=== PATIENT | male | born 1970 | race Caucasian/White ===

== ENCOUNTER 2020-06-27 14:46 | Inpatient (IN) ==
[2020-06-27] MEDS ORDERED: OXYCODONE HCL IR 5 MG TAB (IMMEDIATE RELEASE) PO PRN (15:03)
[2020-06-27] MEDS ORDERED: PIPERACILL/TAZOBAC CONSULT ACTIVE PRN (15:08)
[2020-06-27] MEDS ORDERED: PIPERACILLIN/TAZOBACTAM 3.375 GM in DEXTROSE 5% 100 ML IV SCH (15:15)
[2020-06-27] MEDS ORDERED: PATIENT'S ALLERGY INFO NEEDS ENTERED SCH (15:30)
--- NOTE | 2020-06-27 15:30 | History and Physical Report ---
DATE OF ADMISSION: 06/27/2020 CHIEF COMPLAINT: Left wrist infection. HISTORY OF PRESENT ILLNESS: The patient is a 50-year-old gentleman who suffered a puncture wound to the ulnar side of his left wrist and hand area on Saturday. The patient states he struck his wrist on a board, which had 2 nails sticking out suffering 2 puncture wounds. He presented to our office today for evaluation. Evaluation shows extreme pain and swelling about the left hip, wrist and hand concerning for deep infection. He is to be admitted to the hospital to begin IV antibiotics, an MRI will be ordered, and the patient likely to require surgical intervention. PAST MEDICAL HISTORY: Depression. PAST SURGICAL HISTORY: Left knee, left hand. MEDICATIONS: Adderall 1 tablet 2 times daily, Effexor XR 37.5 mg daily, Erika-D 2 times daily. ALLERGIES: PENICILLIN AND SULFA. SOCIAL HISTORY: He is . He is an occupational therapist. REVIEW OF SYSTEMS: Noncontributory. PHYSICAL EXAMINATION: GENERAL: Well-nourished, well-developed male in obvious distress secondary to left wrist pain and swelling. EXTREMITIES: There are 2 small wounds on the ulnar aspect of the wrist and hand region consistent with his history. There is moderate to severe swelling about the hand and wrist, and it is very tender to palpation and tender with motion. He has got mildly positive Kanavel to sign. X-RAYS: X-rays were reviewed and were within normal limits. ASSESSMENT: A 50-year-old gentleman with a left wrist deep infection versus flexor tenosynovitis. PLAN: Above was discussed with the patient. We are going to admit him to [facility]. We are going to start him on IV antibiotics. We are going to consult infectious disease. We will order an MRI and make him n.p.o. after midnight for possible surgical intervention.
[2020-06-27 19:20] LABS: Basophils # (auto) 0.04 K/uL (0-0.2); Basophils % (auto) 0.4 %; Eosinophils # (auto) 0.03 K/uL (0-0.5); Eosinophils % (auto) 0.3 %; Hematocrit (blood only) 37.5 % (42-52); Hemoglobin 12.6 g/dL (14.0-18.0); Immature Granulocytes # (auto) 0.02 K/uL (0.00-0.02); Immature Granulocytes % (auto) 0.2 %; Lymphocytes # (auto) 1.73 K/uL (1.2-3.4); Lymphocytes % (auto) 17.4 %; Mean Corpuscular Hemoglobin 31.9 pg (25-34); Mean Corpuscular Hgb Conc 33.6 g/dL (32-36); Mean Corpuscular Volume 94.9 fL (80-100); Mean Platelet Volume 9.9 fL (7.4-10.4); Monocytes # (auto) 1.36 K/uL (0.11-0.59); Monocytes % (auto) 13.7 %; Neutrophils # (auto) 6.74 K/uL (1.4-6.5); Platelet Count 242 K/uL (130-400); RDW Coefficient of Variation 13.5 % (11.5-14.5); RDW Standard Deviation 47.3 fL (36.4-46.3); Red Blood Count 3.95 M/uL (4.7-6.1); White Blood Count 9.92 K/uL (4.8-10.8)
[2020-06-27] MEDS ORDERED: OXYCODONE HCL IR 5 MG TAB (IMMEDIATE RELEASE) ONE (19:27)
[2020-06-27] MEDS: SODIUM CHLORIDE 0.9% 1000ML 1,000 ML IV SCH (19:45)
[2020-06-27] MEDS ORDERED: cefTRIAXone SODIUM 1,000 MG in DEXTROSE 5% 50 ML IV SCH (21:00)
[2020-06-27] MEDS: DOCUSATE SODIUM 100 MG CAP PO SCH (21:10)
[2020-06-27] MEDS: ACETAMINOPHEN 500 MG TAB PO SCH (21:11)
[2020-06-28] MEDS: PROPRANOLOL HCL 10 MG TAB PO SCH ×2 (01:22→20:54)
[2020-06-28] MEDS: lamoTRIgine 100 MG TAB PO SCH ×2 (01:22→20:54)
[2020-06-28] MEDS: clonazePAM 0.5 MG TAB PO SCH ×2 (01:24→20:52)
[2020-06-28] MEDS: METOCLOPRAMIDE HCL INJ 5 MG/ML 2 ML VIAL IV PRN (02:15)
[2020-06-28] MEDS: OXYCODONE HCL IR 5 MG TAB (IMMEDIATE RELEASE) PO PRN ×3 (03:53→20:53)
[2020-06-28] MEDS ORDERED: cefTRIAXone SODIUM 1,000 MG in DEXTROSE 5% 50 ML IV SCH (06:00)
--- NOTE | 2020-06-28 06:32 | Magnetic Resonance Report ---
MR wrist LT wo con HISTORY: deep wrist infection vs flexor tenosynovitis pain. Infection. COMPARISON: None. TECHNIQUE: MR scanning of the wrist was performed using multiple pulse sequences, without intravenous contrast material. FINDINGS: Bones: Bone are normal in shape and marrow signal and the carpal bones are anatomically aligned. Flexor Tendons: The flexor tendons and median nerve are normal in signal. Flexor Retinaculum: They have a normal relationship with the flexor retinaculum. TFCC: Fluid within the distal radial ulnar articulation consistent with a tear of the triangular fibr ocartilage. Ligaments: Suboptimally seen. Small joint effusion between the second and third carpal bone row sugge sting probable intraosseous ligament disruption. Location is difficult to ascertain due to patient mo tion. DRUJ: The distal radioulnar joint (DRUJ) is congruent and ligaments are intact. Radiocarpal Joint: Radiocarpal joint has a normal relationship. Extensor and Abductor Tendons: Extensor and abductor tendons on the dorsal and radial surfaces are no rmal in signal and position. Soft Tissue: There is no soft tissue mass. IMPRESSION: 1. Soft tissue edema as well as joint effusion. 2. No acute bony abnormality. 3. Tear triangle fibrocartilage. 4. Secondary evidence for probable tear of the intraosseous ligaments. Location is difficult to ascer tain due to patient motion. ACT 112: Negative or not required by law. The above report was generated using voice recognition software. It may contain grammatical, syntax or spelling errors. Electronically signed by: Ilya Zazueta M.D. 06/28/2020 6:31 AM
[2020-06-28] MEDS ORDERED: HYDROmorphone INJ 0.5 MG/0.5 ML SYR IV PRN ×2 (06:50→07:26)
[2020-06-28] MEDS ORDERED: HYDROmorphone INJ 0.5 MG/0.5 ML SYR ONE (06:52)
[2020-06-28] MEDS ORDERED: HYDROmorphone INJ 0.5 MG/0.5 ML SYR IV STA (07:35)
[2020-06-28] MEDS ORDERED: KETOROLAC 30 MG/ML VIAL IV ONE (07:35)
[2020-06-28] MEDS: SODIUM CHLORIDE 0.9% 1000ML 1,000 ML IV SCH ×2 (07:43→19:20)
[2020-06-28] MEDS: ACETAMINOPHEN 500 MG TAB PO SCH ×3 (08:21→19:22)
[2020-06-28] MEDS: DOCUSATE SODIUM 100 MG CAP PO SCH ×2 (08:22→20:54)
[2020-06-28] MEDS: PANTOprazole 40 MG TAB PO SCH (08:22)
[2020-06-28] MEDS: VENLAFAXINE HCL XR 150 MG CAPXR PO SCH (08:23)
[2020-06-28] MEDS ORDERED: VENLAFAXINE HCL XR 75 MG CAPXR PO SCH (09:00)
[2020-06-28 10:07] LABS: Creatinine Clr Calc Pharmacy 99.7 ml/min; Est GFR (African American) 118.4; Est GFR (Non-African American) 102.2
--- NOTE | 2020-06-28 11:38 | Electrocardiogram Report ---
Test Reason : Blood Pressure : / mmHG Vent. Rate : 068 BPM Atrial Rate : 068 BPM P-R Int : 128 ms QRS Dur : 096 ms QT Int : 356 ms P-R-T Axes : 084 072 054 degrees QTc Int : 378 ms Normal sinus rhythm Normal ECG No previous ECGs available Confirmed by Bhavik Brewer ([id number]) on 06/28/2020 11:38:17 AM Referred By: Florentino Hernandez Confirmed By:Km Brewer
[2020-06-28] MEDS ORDERED: fentaNYL citrate 100 MCG/2 ML VIAL ONE ×2 (15:29→16:02)
[2020-06-28] MEDS ORDERED: LIDOCAINE HCL 2% 2 ML VIAL/AMP(20MG/ML) INFIL ONE (15:29)
[2020-06-28] MEDS ORDERED: ONDANSETRON INJ 2 MG/ML 2 ML VIAL ONE (15:29)
[2020-06-28] MEDS ORDERED: PROPOFOL IV EMULSION 10 MG/ML 20 ML VIAL IV ONE (15:29)
[2020-06-28] MEDS ORDERED: BUPIVACAINE 0.5 % 5 MG/1 ML MPF 30ML VIAL ONE (15:30)
--- NOTE | 2020-06-28 15:40 | History & Physical Bridge Note ---
Date of Service June 28, 2020 History & Physical Bridge Note I have examined the patient, reviewed the History & Physical and in the interval since the performance of the History & Physical I have noted the following changes of clinical significance: no changes noted We will plan for a left wrist washout, with irrigation and debridement of radiocarpal joint, DRUJ, possible flexor or extensor tendons. I discussed the plan in detail with the patient risk and benefits have been discussed including but not limited to stiffness loss of motion failure to improve etc. patient is agreeable wishes to proceed
--- NOTE | 2020-06-28 15:44 | Anesthesiology Consultation ---
Date of Service June 28, 2020 The patient has not been tested for Covid 19. He has no symptoms of Covid 19 and has no known Covid 19 exposure. Assessment & Plan (1) Encounter for pre-operative examination: Chart Review Chart Review: Acceptable Risk for Surgery and Patient NOT seen in Pre Admission Testing Consults Requested none History Surgery Operation Date: 06/28/20 07:00 Proposed Procedures p Left Wrist Infection Incision and Drainage - Florentino Hernandez MD Height/Weight Height: 5 ft 7 in Weight: 73.482 kg Allergies Allergy/AdvReac Type Severity Reaction Status Date / Time Penicillins Allergy Severe Anaphylaxis Verified 06/27/20 20:36 Sulfa (Sulfonamide Allergy Severe Anaphylaxis Verified 06/27/20 20:37 Antibiotics) Medications Home Medications Medication Instructions Recorded Confirmed Last Taken alfuzosin 10 mg PO 06/27/20 06/25/20 09:00 alfuzosin 10 mg PO 06/27/20 06/26/20 21:00 10 mg cephalexin 500 mg PO 06/27/20 06/27/20 17:30 clonazepam 1.5 mg HS 06/27/20 06/27/20 06/26/20 dextroamphetamine-amphetamine 10 mg 06/27/20 06/25/20 ketorolac 10 mg 06/27/20 06/27/20 15:30 lamotrigine 100 mg HS 06/27/20 06/27/20 06/26/20 09:00 lisdexamfetamine [Vyvanse] 40 mg 06/27/20 06/25/20 0900 propranolol 10 mg HS 06/27/20 06/27/20 06/26/20 09:00 venlafaxine 75 mg PO DAILY 06/27/20 06/27/20 06/26/20 09:00 venlafaxine 225 mg PO DAILY 06/27/20 06/27/20 06/26/20 09:00 Active Medications Generic Name Dose Route Start Last Admin Trade Name Freq PRN Reason Stop Dose Admin Acetaminophen 1,000 mg 06/28/20 08:00 06/28/20 08:28 Tylenol PO 07/28/20 07:59 500 mg Q8H ESTELITA Administration Clonazepam 1.5 mg 06/28/20 01:15 06/28/20 01:24 Klonopin PO 07/28/20 01:14 1.5 mg HS ESTELITA Administration Diphenhydramine HCl 25 mg 06/27/20 15:03 06/28/20 02:52 Benadryl Capsule PO 07/27/20 15:02 25 mg Q8H PRN Administration Itching Docusate Sodium 100 mg 06/27/20 21:00 06/28/20 08:22 Colace PO 07/27/20 20:59 100 mg BID ESTELITA Administration Sodium Chloride 1,000 mls @ 100 mls/hr 06/27/20 19:45 06/28/20 14:33 Nss 1000ml IV 07/27/20 19:44 0 mls/hr .Q10H ESTELITA Infusion Ceftriaxone Sodium 1,000 mg/ 50 mls @ 100 mls/hr 06/27/20 21:00 06/27/20 21:45 Dextrose IV 07/04/20 20:59 Infused Q24H ESTELITA Infusion Protocol Lamotrigine 100 mg 06/28/20 01:15 06/28/20 01:22 Lamictal PO 07/28/20 01:14 100 mg HS ESTELITA Administration Metoclopramide HCl 10 mg 06/27/20 15:03 06/28/20 02:15 Reglan IV 07/27/20 15:02 10 mg Q6H PRN Administration Nausea/Vomiting Oxycodone HCl 5 - 10 mg 06/28/20 02:25 06/28/20 09:11 Roxicodone Immediate Rel PO 07/11/20 15:02 10 mg Q4 PRN Administration Pain Pantoprazole Sodium 40 mg 06/28/20 09:00 06/28/20 08:22 Protonix PO 07/28/20 08:59 40 mg QAM ESTELITA Administration Propranolol HCl 10 mg 06/28/20 01:15 06/28/20 01:22 Inderal PO 07/28/20 01:14 10 mg HS ESTELITA Administration Venlafaxine HCl 300 mg 06/28/20 09:00 06/28/20 08:23 Effexor Extended Release PO 07/28/20 08:59 300 mg QAM ESTELITA Administration NPO Date Last Intake of Fluids: 06/28/20 Time Last Intake of Fluids: 09:11 Date Last Intake of Solids: 06/27/20 Time Last Intake of Solids: 23:30 Last Intake of Solids Comment: 2100 Past Medical History Medical History ADD (attention deficit disorder) Depression Seasonal allergies Smoker Social History Smoking Status: Current some day smoker tobacco type: cigarettes Do You Dip or Chew Tobacco: No Hx Alcohol Use: No Hx Substance Use: No Physical Exam Vital Signs Last Vital Signs Temp 37 C 06/28/20 14:43 Pulse 64 06/28/20 14:43 Resp 18 06/28/20 14:43 BP 125/73 06/28/20 14:43 Pulse Ox 97 06/28/20 14:43 Testing Laboratory Results 06/27/20 19:03 06/28/20 09:26 Electrocardiogram Date: 06/28/20 Findings: + NSR @ (83)
[2020-06-28] MEDS ORDERED: DEXAMETHASONE SOD INJ 4 MG/ML VIAL ONE (15:58)
[2020-06-28] MEDS ORDERED: ATROPINE SULFATE 0.1 MG/ML 10ML SYR IV PRN (16:03)
[2020-06-28] MEDS ORDERED: HYDROmorphone INJ 1 MG/ML SYRINGE IV PRN (16:03)
[2020-06-28] MEDS ORDERED: PHENYLEPHRINE 100MCG/ML 5ML SYR IV PRN (16:03)
[2020-06-28] MEDS ORDERED: fentaNYL citrate 100 MCG/2 ML VIAL IV PRN (16:03)
[2020-06-28] MEDS ORDERED: ONDANSETRON INJ 2 MG/ML 2 ML VIAL IV PRN (16:03)
[2020-06-28] MEDS ORDERED: LABETALOL HCL IV 5 MG/ML 20ML IV PRN (16:03)
[2020-06-28] MEDS ORDERED: ePHEDrine sulfate 50 MG/ML AMP IV PRN (16:03)
--- NOTE | 2020-06-28 17:20 | Post Operative Brief Note ---
Immediate Post Op Note v1 Date of Surgery June 28, 2020 Pre & Post Diagnosis Operation Date: 06/28/20 07:00 Pre-Op Diagnosis: Left Wrist Infection Post-Op Diagnosis: Left Wrist Infection, with septic radiocarpal joint, septic distal radial ulnar joint, extensor tenosynovitis in the EDC tendons and EDQ tendons I identified the patient and participated in the time-out.: Yes Procedure Operation Date: 06/28/20 07:00 Actual Procedures p Arthrotomy, Drainage Radial Carpal Joint, Distal Radius Ulna Joint, Extensor Tenosynovectomy Extensor Digiti minimi-Left (Left) - Florentino Hernandez MD Surgeon Florentino Hernandez MD Survey Methodologist none Estimated Blood Loss 10 Findings Consistent with Post-Op Diagnosis
[2020-06-28] MEDS ORDERED: PROMETHAZINE HCL 25 MG in SODIUM CHLORIDE 0.9% 50 ML IV STA (17:56)
--- NOTE | 2020-06-28 18:30 | Anesthesiology Progress Note ---
Date of Service June 28, 2020 Anesthesia Post Procedure Vital Signs Vital Signs: Temp Pulse Pulse Resp BP Pulse Ox 06/28/20 18:20 36.2 C L 87 15 135/77 93 06/28/20 18:10 88 15 121/71 95 06/28/20 18:00 106 H 14 118/66 93 06/28/20 17:50 91 H 12 141/79 H 98 06/28/20 17:40 36.3 C L 117 H 17 140/78 94 06/28/20 14:43 37 C 64 18 125/73 97 06/28/20 07:40 37.4 C 65 20 154/85 H 100 06/27/20 23:46 37.2 C 75 16 113/63 98 06/27/20 18:56 37.0 C 77 16 144/80 H Pain Intensity Left Arm: Pain Intensity: 2 Left Hand: Pain Intensity: 2 Transfer of Care Handoff Completed per policy Notes Mental Status: alert / awake / arousable Patient Amnestic to Procedure: Yes Nausea / Vomiting: adequately controlled Pain: adequately controlled Airway Patency, RR, SpO2: stable & adequate BP & HR: stable & adequate Hydration State: stable & adequate Anesthetic Complications: no major complications apparent and Pt Satisfied with anesthetic care Notes: Patient had PONV and was treated with Phenergan.
[2020-06-28] MEDS: KETOROLAC 30 MG/ML VIAL IV SCH (19:22)
[2020-06-28] MEDS ORDERED: clonazePAM 1 MG TAB PO SCH (21:00)
[2020-06-29] MEDS: ACETAMINOPHEN 500 MG TAB PO SCH ×4 (00:47→23:26)
[2020-06-29] MEDS: KETOROLAC 30 MG/ML VIAL IV SCH ×5 (00:53→23:27)
[2020-06-29] MEDS: OXYCODONE HCL IR 5 MG TAB (IMMEDIATE RELEASE) PO PRN ×4 (00:55→23:26)
[2020-06-29] MEDS: SODIUM CHLORIDE 0.9% 1000ML 1,000 ML IV SCH ×2 (06:07→16:40)
--- NOTE | 2020-06-29 07:59 | Operative Report (OR) ---
DATE OF OPERATION: 06/28/2020 PREOPERATIVE DIAGNOSIS: Left wrist infection. POSTOPERATIVE DIAGNOSES: 1. Left wrist infection. 2. Left septic radiocarpal joint. 3. Left septic distal radial ulnar joint. 4. Left wrist septic extensor tenosynovitis, extensor digitorum communis tendons. 5. Left wrist septic extensor tenosynovitis, extensor digiti minimi tendon. PROCEDURE: 1. Left wrist arthrotomy and drainage, radiocarpal joint. 2. Left wrist arthrotomy and drainage, distal radioulnar joint. 3. Left wrist extensor tenosynovectomy, EDC tendons. 4. Left wrist extensor tenosynovectomy, extensor digiti minimi tendon. SURGEON: Bhavik Hernandez MD WINDOWS MIGRATION TECHNICIAN: None. ANESTHESIA: General. INDICATIONS: This is a 50-year-old gentleman with progressive pain and swelling in the wrist after a puncture wound with a nail. He presents with concern for a septic joint and wrist infection. The risks and benefits have been discussed including, but not limited to, risk of infection, nerve injury, stiffness, loss of motion, failure to improve, etc. Reasonable outcomes and options of treatment were discussed. An explanation of appropriate alternatives to the procedure that may be advantageous were discussed and their risks and benefits, as well as the risks and benefits of not proceeding with treatment. I offered to answer any additional inquiries concerning the treatment involved. All the patient's questions were answered. The patient is agreeable, understanding of the treatment plan and alternatives, and wishes to proceed with the treatment plan. DESCRIPTION OF OPERATION: I made a longitudinal incision over the fifth extensor compartment with a gentle curve towards the fourth extensor compartment on the dorsal wrist. Dissection was carried down through the skin and subcutaneous tissues. Dorsal veins were cauterized and sensory nerves were retracted free. I identified the EPL and this was transposed radially. I then entered the radiocarpal joint between the 2nd and 4th extensor compartments. There was a large amount of purulence in the radiocarpal joint consistent with septic joint. I performed arthrotomy and drainage of this and the joint was irrigated with 3 liters of normal saline. I opened the mid carpal joint. There was no evidence of pus in the mid carpal joint. I inspected the extensor tendons of the fourth extensor compartment. There was evidence of moderate amount of extensor tenosynovitis. There was no spread of infection into this area. I performed debridement of extensor tendons performing extensor tenosynovectomy. I took superficial cultures from the extensor tendon. I took deep cultures from the radiocarpal joint as well as deep cultures from the DRUJ. Attention was focused on the distal radial ulnar joint. I made a longitudinal incision over the fifth extensor compartment and the EDM tendon was identified. This likewise did show extensive tenosynovitis and I performed extensor tenosynovectomy of the EDM tendon. Once this was accomplished, I made a longitudinal incision in the DRUJ staying as proximal to the dorsal radial ulnar ligament. I found a large amount of purulence in this region as well. I performed arthrotomy and drainage of the distal radial ulnar joint. This was irrigated copiously with 3 liters of normal saline. Deep cultures were taken as well prior to irrigation. The incisions were again irrigated. Capsule layer in the radiocarpal joint was closed with 2-0 PDS. The capsular layer in the DRUJ was closed with 4-0 Monocryl. Tourniquet was let down, hemostasis was obtained with bipolar cautery. Extensor retinaculum was closed with 4-0 Monocryl and the EPL was left transposed. Skin was closed with a running mattress stitch of 4-0 nylon. I injected Marcaine in the local area at the conclusion of the procedure. The patient was placed in soft dressing and sent to the PACU in stable condition. I attempted to contact family, but there were none available despite multiple calls. Postoperative plan will be range of motion as tolerated. Occupational therapy for digital range of motion. Will continue Rocephin and appreciate input from infectious disease. I attest to the content of the Intraoperative Record and any orders documented therein. Any exception s are noted below.
[2020-06-29] MEDS: DOCUSATE SODIUM 100 MG CAP PO SCH ×2 (08:39→20:07)
[2020-06-29] MEDS: PANTOprazole 40 MG TAB PO SCH (08:39)
[2020-06-29] MEDS: VENLAFAXINE HCL XR 150 MG CAPXR PO SCH (08:40)
[2020-06-29] MEDS: METOCLOPRAMIDE HCL INJ 5 MG/ML 2 ML VIAL IV PRN (15:59)
--- NOTE | 2020-06-29 16:15 | Orthopedic Progress Note ---
Date of Service June 29, 2020 Assessment & Plan (1) Infection of left wrist: 1. Left wrist infection. 2. Left septic radiocarpal joint. 3. Left septic distal radial ulnar joint. 4. Left wrist septic extensor tenosynovitis, extensor digitorum communis tendons. 5. Left wrist septic extensor tenosynovitis, extensor digiti minimi tendon. Postop day 1 status post I&D left wrist. Cultures as noted. Waiting for final and sensitivities. Plan for dressing change tomorrow. Will likely need at least a few weeks of IV antibiotics due to joint involvement. Admission and Anticipated Discharge Date Admission Date: June 27, 2020 Subjective Postop day 1 Patient currently sitting up in bed awake and alert. States he is having pain off and on in the left wrist with pain radiating down into the fingers at times. States he has some pain that radiates up to the elbow. No other complaints at this time. Overall pain was better when a previously yesterday. Physical Exam Physical Exam: Dressings are clean, dry, and intact. Fingers are mildly swollen. Cap refill is less than 2 seconds. Sensation is intact. He is able to move the fingers at this time but has some discomfort in doing so. Results & Data ([facility]) Vital Signs (Past 12 Hours) Vital Signs Temp Pulse Resp BP Pulse Ox 06/29/20 11:13 36.8 C 60 20 120/75 98 06/29/20 07:22 36.6 C 67 18 97/52 L 99 [place] [address] / Director: Jaguar Hanson M.D. Clinical Laboratory Report Name: REBECCA VILLANUEVA Acct: [id number] Status: ADM IN : 1970 [facility] [place] Date: 06/27/20 Age: 50 Sex: M Dis Date: Loc: Medical/Surgical/Ortho [address] [place] [address]/Bed: E3-1 Spec: [id number] Collected: 06/28/20 Received: 06/28/20-[address]: Ulises Hernandez MD Source: Wrist,Left OV Order: Ordered: Aer/Kiersten Cult/Sm Comments: Reason for Exam culture #3 left distal radius ulna joint aerobic , anerobic Procedure Result Verified Site Gram Stain Final 06/29/20 Gram Stain Result Many WBCs Seen Rare Epithelial Cells Rare Gram Positive Cocci Aero/Kiersten Cult Preliminary 06/29/20-1153 No growth to date.
[2020-06-29] MEDS: lamoTRIgine 100 MG TAB PO SCH (20:06)
[2020-06-29] MEDS: PROPRANOLOL HCL 10 MG TAB PO SCH (20:07)
[2020-06-29] MEDS: clonazePAM 0.5 MG TAB PO SCH (20:11)
[2020-06-30] MEDS: KETOROLAC 30 MG/ML VIAL IV SCH ×4 (05:07→23:33)
[2020-06-30] MEDS: OXYCODONE HCL IR 5 MG TAB (IMMEDIATE RELEASE) PO PRN ×3 (05:12→23:43)
[2020-06-30] MEDS ORDERED: DAPTOMYCIN CONSULT ACTIVE PRN (07:49)
[2020-06-30] MEDS: VENLAFAXINE HCL XR 150 MG CAPXR PO SCH (08:29)
[2020-06-30] MEDS: DOCUSATE SODIUM 100 MG CAP PO SCH ×2 (08:29→20:05)
[2020-06-30] MEDS: PANTOprazole 40 MG TAB PO SCH (08:29)
[2020-06-30] MEDS: ACETAMINOPHEN 500 MG TAB PO SCH ×3 (08:30→23:33)
[2020-06-30] MEDS: DAPTOmycin 400 MG in SYRINGE 0 ML IV STA ×2 (08:57→11:03)
[2020-06-30] MEDS: cefTRIAXone SODIUM 2,000 MG in DEXTROSE 5% 50 ML IV SCH (11:04)
--- NOTE | 2020-06-30 11:06 | Orthopedic Progress Note ---
Date of Service I spoke enocbeatriz June 30, 2020 Assessment & Plan (1) Infection of left wrist: 1. Left wrist infection. 2. Left septic radiocarpal joint. 3. Left septic distal radial ulnar joint. 4. Left wrist septic extensor tenosynovitis, extensor digitorum communis tendons. 5. Left wrist septic extensor tenosynovitis, extensor digiti minimi tendon. Dr. Hernandez spoke with Fabio ID, will increase Rocephin to 2 gm daily and continue with Dapto. no sensitivities growing at this time. Dressing changed today. Hopefully will be able to discharge tomorrow. Admission and Anticipated Discharge Date Admission Date: June 27, 2020 Supervising Physician Co-Signing Physician Notes I spoke with ID . The prefer Vanco and Rocephin rather than Dapto due to appropite anitbiotic stewardship. will continue those. anticipate Dc tomorrow (saturday) Subjective Postop day 1 Patient currently sitting up in bed awake and alert. States he is having pain off and on in the left wrist with pain radiating down into the fingers at times. Pain seems to be getting better but he notes more pain in the evening. Physical Exam Physical Exam: left wrist no erythema. left hand/wrist swelling improving digital stiffness no drainage Results & Data ([facility]) Vital Signs (Past 12 Hours) Vital Signs Temp Pulse Pulse Resp BP Pulse Ox 06/30/20 07:24 36.6 C 58 L 16 97/59 L 97 06/29/20 23:22 36.7 C 64 16 118/75 98
[2020-06-30] MEDS ORDERED: VANCOMYCIN CONSULT ACTIVE PRN (12:20)
--- NOTE | 2020-06-30 14:29 | Pharmacy Report ---
Pharmacy Abx Initial Consult - Date of Service June 30, 2020 - Pharmacy Dosing Scope Date of Consult: 06/30/20 Consultation requested by: Chanell Grove PA-C Pharmacy is consulted to initiate vancomycin IV dosing therapy, order appropriate labs and adjust drug dose/frequency. - Subjective The patient is a 50 year old M admitted on 06/27/20 18:41. - Objective Height: 5 ft 7 in Weight: 73.482 kg Vital Signs (Past 12hrs): Vital Signs Temp Pulse Resp BP Pulse Ox 06/30/20 07:24 36.6 C 58 L 16 97/59 L 97 Micro Results: 06/28/20 16:32 Gram Stain - Final Wrist,Left 06/28/20 16:44 Gram Stain - Final Wrist,Left 06/28/20 16:28 Gram Stain - Final Wrist,Left - Assessment & Plan Assessment NB is a 50 year old male who presented to the ED on 06/27/20 with worsening pain and swelling of left wrist following traumatic puncture wounds to his left wrist on 06/25. Now POD #2 s/p left wrist arthrotomy and drainage x 2 and left wrist extensor tenosynovectomy x 2. [facility] ID seeing patient and recommends ceftriaxone 2 g IV q24h and vancomycin IV (targeting trough of 15-20). Patient to be discharged within the next couple of days and will likely need outpatient IV antibiotics. 1 of 3 wrist cultures growing rare gram positive cocci. Patient has been afebrile for the duration of admission. Will recheck SCr tomorrow to ensure stable renal function. Patient has anaphylactic allergies listed to penicillins and sulfonamide antibiotics, but seems to tolerate cephalosporins. Plan Vancomycin IV * Estimated PK Parameters: Vd 0.7 L/kg, Apolinar 0.087 hr-1, t1/2 8 hr * Loading dose: 1750 mg (24 mg/kg) * Maintenance dose: 1500 mg IV (20 mg/kg) every 12 hours * Goal trough level for bone/joint infection : 15 to 20 mcg/mL * Trough level ordered for 07/02/20 prior to 4th dose * Based on patient specific estimated kinetics - this preferred dosing frequency in this patient would have been q8h based on AUC dosing. However, will attempt to utilize q12h regimen to make a more convenient outpatient dosing regimen. Ceftriaxone IV * 2 g IV q24h - appropriate for this indication Pharmacy will continue to follow and will adjust dose/frequency as necessary. Thank you.
[2020-06-30] MEDS ORDERED: VANCOMYCIN HCL 1,750 MG in SODIUM CHLORIDE 0.9% 500 ML IV ONE (20:00)
[2020-06-30] MEDS: PROPRANOLOL HCL 10 MG TAB PO SCH (20:05)
[2020-06-30] MEDS: lamoTRIgine 100 MG TAB PO SCH (20:08)
[2020-06-30] MEDS: clonazePAM 0.5 MG TAB PO SCH (20:09)
[2020-07-01 06:29] LABS: Basophils # (auto) 0.03 K/uL (0-0.2); Basophils % (auto) 0.5 %; Eosinophils # (auto) 0.23 K/uL (0-0.5); Hematocrit (blood only) 30.5 % (42-52); Hemoglobin 10.2 g/dL (14.0-18.0); Immature Granulocytes # (auto) 0.01 K/uL (0.00-0.02); Immature Granulocytes % (auto) 0.2 %; Lymphocytes # (auto) 2.07 K/uL (1.2-3.4); Lymphocytes % (auto) 36.4 %; Mean Corpuscular Hgb Conc 33.4 g/dL (32-36); Mean Corpuscular Volume 92.7 fL (80-100); Mean Platelet Volume 10.2 fL (7.4-10.4); Monocytes # (auto) 0.75 K/uL (0.11-0.59); Monocytes % (auto) 13.2 %; Neutrophils # (auto) 2.59 K/uL (1.4-6.5); Neutrophils % (auto) 45.7 %; Platelet Count 231 K/uL (130-400); RDW Coefficient of Variation 12.9 % (11.5-14.5); RDW Standard Deviation 44.1 fL (36.4-46.3); Red Blood Count 3.29 M/uL (4.7-6.1); White Blood Count 5.68 K/uL (4.8-10.8)
[2020-07-01] MEDS: KETOROLAC 30 MG/ML VIAL IV SCH ×2 (06:55→11:12)
[2020-07-01 06:58] LABS: Albumin Level 2.7 gm/dl (3.4-5.0); BUN Creatinine Ratio 24.3 (10-20); Calcium 8.8 mg/dl (8.5-10.1); Est GFR (Non-African American) 102.7; Potassium 4.1 mmol/L (3.5-5.1)
[2020-07-01 07:01] LABS: Albumin Globulin Ratio 0.8 (0.9-2); Bilirubin,Total 0.2 mg/dl (0.2-1); Globulin 3.6 gm/dl (2.5-4.0); Total Protein 6.3 gm/dl (6.4-8.2)
[2020-07-01] MEDS: ACETAMINOPHEN 500 MG TAB PO SCH ×2 (07:54→15:30)
[2020-07-01] MEDS: PANTOprazole 40 MG TAB PO SCH (07:54)
[2020-07-01] MEDS: DOCUSATE SODIUM 100 MG CAP PO SCH (07:55)
[2020-07-01] MEDS: VENLAFAXINE HCL XR 150 MG CAPXR PO SCH (07:55)
[2020-07-01] MEDS ORDERED: VANCOMYCIN HCL 1,500 MG in SODIUM CHLORIDE 0.9% 500 ML IV SCH (08:00)
[2020-07-01] MEDS ORDERED: DAPTOmycin 400 MG in SYRINGE 0 ML IV SCH (09:00)
[2020-07-01] MEDS: cefTRIAXone SODIUM 2,000 MG in DEXTROSE 5% 50 ML IV SCH (10:47)
--- NOTE | 2020-07-01 14:59 | Orthopedic Progress Note ---
Date of Service July 01, 2020 Assessment & Plan (1) Infection of left wrist: POD #2 s/p 1. Left wrist arthrotomy and drainage, radiocarpal joint. 2. Left wrist arthrotomy and drainage, distal radioulnar joint. 3. Left wrist extensor tenosynovectomy, EDC tendons. 4. Left wrist extensor tenosynovectomy, extensor digiti minimi tendon Dressing changed today prior to discharge. He will d/c home today with home health and Vancomycin 1.5 grams IV Q12 hours. ROM as tolerated F/U with Dr. Hernandez's clinic in 7-10 days for re-evaluation. Admission and Anticipated Discharge Date Admission Date: June 27, 2020 Subjective States the wrist is generally feeling better. Pain is improved. He is working on improving the flexion and extension and there is little pain with ROM. States there is only a slight amount of serosanguinous drainage if anything comes from the wound. Physical Exam Constitutional: well developed and well nourished; no acute distress Musculoskeletal: Extremities: + wrist abnormality Left (Dorsal left wrist--well approximated incision. No erythema. Mild serous drainage.) Skin: no rashes, warm and dry Neurologic: normal touch/pain/proprioception Psychiatric: A+Ox3, euthymic affect Speech: normal rate/rhythm/volume of speech Results & Data ([facility]) Vital Signs (Past 12 Hours) Vital Signs Temp Pulse Resp BP Pulse Ox 07/01/20 06:36 36.8 C 50 L 16 109/61 97
[2020-07-01] MEDS: OXYCODONE HCL IR 5 MG TAB (IMMEDIATE RELEASE) PO PRN (15:30)
[2020-07-02] MEDS ORDERED: VANCOMYCIN TROUGH SCH (07:30)
--- NOTE | 2020-07-05 09:02 | Discharge Summary ---
Date of Service July 05, 2020 Principal Diagnosis left wrist infection Discharge Exam Constitutional well developed and well nourished; no acute distress Musculoskeletal Extremities: + wrist abnormality Skin no rashes, warm and dry Neurologic normal touch/pain/proprioception Psychiatric A+Ox3, euthymic affect Speech: normal rate/rhythm/volume of speech Discharge Data Allergies Allergy/AdvReac Type Severity Reaction Status Date / Time Penicillins Allergy Severe Anaphylaxis Verified 06/27/20 20:36 Sulfa (Sulfonamide Allergy Severe Anaphylaxis Verified 06/27/20 20:37 Antibiotics) Consultations 06/27/20 15:08 Consult Infectious Diseases Routine Procedures Performed Operation Date: 06/28/20 07:00 Actual Procedures p Arthrotomy, Drainage Radial Carpal Joint, Distal Radius Ulna Joint, Extensor Tenosynovectomy Extensor Digiti minimi-Left (Left) - Florentino Hernandez MD Ordered Studies 06/27/20 15:08 MR wrist LT wo con Urgent Hospital Course (1) Infection of left wrist: The patient was admitted on 06.27.2020 for probable left wrist infection. The following day he underwent the noted procedure with intra-operative cultures. The patient was followed for infection control and pain control. Once his cultures and sensitivities returned, ID in [place] made the proper IV antibiotic choice to be given through a PICC line. He was then discharged home. POD #2 s/p 1. Left wrist arthrotomy and drainage, radiocarpal joint. 2. Left wrist arthrotomy and drainage, distal radioulnar joint. 3. Left wrist extensor tenosynovectomy, EDC tendons. 4. Left wrist extensor tenosynovectomy, extensor digiti minimi tendon Dressing changed today prior to discharge. He will d/c home today with home health and Vancomycin 1.5 grams IV Q12 hours. ROM as tolerated F/U with Dr. Hernandez's clinic in 7-10 days for re-evaluation. Total Time Total Time Spent Total Time Spent (In Minutes): 40 Total Time Includes: Examination of the Patient, Discharge Planning, Medication Reconciliation and Communication With Other Providers Discharge Plan Discharge Items Patient Disposition: Home - Home Health Services Reason For Visit: LEFT WRIST INFECTION Discharge Diagnosis: s/p I & D left septic wrist Activity: Per Instructions section Non-emergency contact: Surgeon Call non-emergency contact if: your symptoms worsen, your pain is unusual for you, your temperature is above 101.5, your wound has increased drainage and your wound pain has increased Follow-up/Referrals: [facility] [Primary Care Provider] - Diet: Regular Addtl Attending Provider Instructions: ACTIVITY RECOMMENDATIONS: * Avoid lifting anything heavier than a medium water glass until your first post operative visit. SPECIAL CARE INSTRUCTIONS: * Your bandage should be left in place until follow up. * Some drainage onto the dressing may occur. This is normal. * If the bandage feels excessively tight, you may loosen the elastic bandage. Then call the physician's office for further instructions. * If possible, keep your hand elevated above the level of your heart for the first 2 post operative days. You may use a sling if necessary. * You should move your fingers regularly (50-100 motions per hour) unless otherwise instructed. SPECIAL PRECAUTIONS: * If you notice increased drainage, fever over 101 degrees F. or severe, unremitting pain, call your physician/office at . * You may have been prescribed pain medication. If you experience nausea and/or skin rash, discontinue this medication and contact our office for an alternative medication. FOLLOW UP VISIT: If appointment is not already scheduled: next saturday07/05/2020 Please call [facility] to make a follow-up appointment after your surgery at . Pending Studies at Discharge: No Stand-Alone Forms: [facility], Smoking Cessation Medications and DC Order Prescriptions: New venlafaxine 150 mg Capsule,Extended Release 24hr 300 mg PO QAM 30 Days Qty: 60 RF: 0 acetaminophen 500 mg Tablet 1,000 mg PO Q8H 30 Days Qty: 180 RF: 0 lamotrigine 100 mg Tablet 100 mg PO HS 30 Days Qty: 30 RF: 0 oxycodone 5 mg Tablet 5 - 10 mg PO Q4 PRN (Reason: pain) Qty: 18 RF: 0 propranolol 10 mg Tablet 10 mg PO HS 30 Days Qty: 30 RF: 0 vancomycin 1.5 gram recon soln 1.5 gm IV Q12H 28 Days Qty: 28 RF: 0 Continued alfuzosin 10 mg tablet extended release 24 hr 10 mg PO RF: 0 Vyvanse 40 mg capsule 40 mg RF: 0 dextroamphetamine-amphetamine 10 mg tablet 10 mg RF: 0 propranolol 10 mg tablet 10 mg HS RF: 0 lamotrigine 100 mg tablet 100 mg HS RF: 0 venlafaxine 225 mg tablet extended release 24hr 225 mg PO DAILY RF: 0 venlafaxine 75 mg capsule,extended release 24hr 75 mg PO DAILY RF: 0 clonazepam 1 mg tablet 1.5 mg HS RF: 0 ketorolac 10 mg tablet 10 mg RF: 0 alfuzosin 10 mg tablet extended release 24 hr 10 mg PO RF: 0 Discontinued cephalexin 500 mg capsule 500 mg PO RF: 0 Discharge Orders: Discharge Order (Routine); Ordered 07/01/20 Ordered By: Benjamin Lentz/Other Patient Handouts: Caring for Your Central Vein Access, Joint Infec Abx Tx Cath Admission Data Admit Date/Time: 06/27/20 18:41 Attending Provider: Florentino Hernandez Admit Provider: Florentino Hernandez Primary Care Provider: [facility] Other Providers: Naga Altamirano ; Mert Montes ; Estiven Coppola I. ; Oren Go II ; Sheila Degroot ; Ilya Newby ; [facility] Other Interventions: Discharge Summary Assessment (RN) Last Done: 07/01/20 15:40 DC Date/Time DO NOT enter until pt leaves facility: 07/01/20 17:50
== END 2020-07-01 17:50 | disposition home health service (06) | DRG 506 ==
LOC: 3E 18:41